=== PATIENT | female | born 1950 | race Caucasian/White ===

== ENCOUNTER 2018-04-12 08:51 | Outpatient (CLI) | payer MEDICARE, BC ==
--- NOTE | 2018-04-12 11:57 | CT ---
CT ABDOMEN AND PELVIS WITH AND WITHOUT IV CONTRAST: Date: 04/12/18 HISTORY: Microhematuria. FINDINGS: Each renal collecting system, ureter, and the urinary bladder are decompressed without stone apparent . No filling defects are visible within the urinary system on the delayed images. Calcified granulomata within the liver are consistent with healed granulomatous disease. Tiny low den sity lesion within the anterior segment right liver lobe is too small to characterize and likely repr esents a small hepatic cyst. Multiple cysts arise from the cortex of each kidney, including an exophy tic hyperdense cyst at the superior pole left kidney measuring up to 1.4 cm. Hyperdense cyst with a f luid-fluid layer also projects laterally from the cortex of the right kidney. There are degenerative changes of the lumbar spine. Calcification throughout the arterial structures. Left gonadal vein is somewhat prominent. Diverticula arise from the colon without adjacent inflammat ion. IMPRESSION: 1. No urinary tract abnormalities are demonstrated to explain microhematuria. There are bilateral re nal cysts. 2. Atherosclerosis. 3. Diverticulosis. No evidence of diverticulitis. POS: TAMMY
[2018-04-12] MEDS ORDERED: Iopamidol 370 76% 100 ML VIAL ONE (13:29)
== END 2018-04-12 08:52 | disposition home or self-care (01) ==
LOC: BICCT 08:51
PROVIDERS: ATTEND Urology
DX: R31.9 Hematuria, unspecified (principal); N28.1 Cyst of kidney, acquired; I70.90 Unspecified atherosclerosis; K57.30 Diverticulosis of large intestine without perforation or abscess without bleeding
CPT/HCPCS: 74178; 82565

== ENCOUNTER 2019-04-12 10:39 | Outpatient (CLI) | payer MEDICARE, BC ==
--- NOTE | 2019-04-12 11:39 | MMO ---
Bilateral MAMMO Bilat Screen [facility]. CLINICAL HISTORY: Patient is 69 years old and is seen for screening. The patient has no family history of breast cancer. The patient has no personal history of cancer. VIEWS: The views performed were: bilateral craniocaudal with tomosynthesis and bilateral mediolateral oblique with tomosynthesis. This study has been interpreted with the assistance of computer-aided detection. MAMMOGRAM FINDINGS: The breasts are heterogeneously dense, which could obscure a lesion on mammography. There are benign appearing calcifications seen in both breasts. There are also vascular calcifications. There are no suspicious masses, suspicious calcifications, or areas of architectural distortion. IMPRESSION: THERE IS NO MAMMOGRAPHIC EVIDENCE OF MALIGNANCY. A ROUTINE FOLLOW-UP MAMMOGRAM IN 1 YEAR IS RECOMMENDED. THE RESULTS OF THIS EXAM WERE SENT TO THE PATIENT. ACR BI-RADS Category 2 - Benign finding MAMMOGRAPHY NOTE: 1. A negative mammogram report should not delay a biopsy if a dominant of clinically suspicious mass is present. 2. Approximately 10% to 15% of breast cancers are not detected by mammography. 3. Adenosis and dense breasts may obscure an underlying neoplasm. Reported by: MOLLY VERDE MD Electonically Signed: [id number]
--- NOTE | 2019-04-12 11:42 | BD ---
DEXA DENSITOMETRY: INDICATIONS: Postmenopausal screening. FINDINGS: LUMBAR SPINE BMD (g/cm2) T-SCORE L1 0.638 -3.2 L2 0.710 -2.9 L3 0.654 -3.9 L4 0.717 -3.1 TOTAL 0.681 -3.3 FEMORAL NECK 0.564 -2.6 TOTAL 0.717 -1.8 Femoral neck density from 12/08/2014 recorded at 0.586. IMPRESSION: The bone mineral density of the lumbar spine and femoral neck both indicate osteoporosis. POS: TAMMY
== END 2019-04-12 10:40 | disposition home or self-care (01) ==
LOC: BICMAMMO 10:39
PROVIDERS: ATTEND Physician Assistant
DX: Z12.31 Encounter for screening mammogram for malignant neoplasm of breast (principal); M81.0 Age-related osteoporosis without current pathological fracture; M85.89 Other specified disorders of bone density and structure, multiple sites
CPT/HCPCS: 77063; 77067; 77080

== ENCOUNTER 2023-05-11 12:56 | Outpatient (CLI) | payer MEDICARE, BC | END 2023-05-11 12:57 | disposition home or self-care (01) | LOC: BICCT 12:56 | PROVIDERS: ATTEND Internal Medicine | DX: Z12.2 Encounter for screening for malignant neoplasm of respiratory organs (principal); J44.9 Chronic obstructive pulmonary disease, unspecified; J43.9 Emphysema, unspecified; Z87.891 Personal history of nicotine dependence | CPT/HCPCS: 71271 ==

== ENCOUNTER 2024-03-16 12:56 | Outpatient (CLI) | payer MEDICARE, BC | END 2024-03-16 12:57 | disposition home or self-care (01) | LOC: BICMAMMO 12:56 | PROVIDERS: ATTEND Nurse Practitioner Family | DX: Z12.31 Encounter for screening mammogram for malignant neoplasm of breast (principal); Z13.820 Encounter for screening for osteoporosis; Z78.0 Asymptomatic menopausal state; M81.0 Age-related osteoporosis without current pathological fracture; Z80.3 Family history of malignant neoplasm of breast | CPT/HCPCS: 77067; 77080 ==

== ENCOUNTER 2024-04-08 10:58 | Outpatient (CLI) | payer MEDICARE, BC | END 2024-04-08 10:59 | disposition home or self-care (01) | LOC: BICRAD 10:58 | PROVIDERS: ATTEND Internal Medicine Rheumatology | DX: M17.11 Unilateral primary osteoarthritis, right knee (principal) ==

== ENCOUNTER 2024-05-28 22:35 | Inpatient (IN) | payer MEDICARE, BC ==
[2024-05-29 01:01] VITALS: BMI 25.5
[2024-05-29] MEDS ORDERED: Ondansetron ODT 4 MG TAB PO PRN (02:11)
[2024-05-29] MEDS ORDERED: Acetaminophen 650 MG Suppository PR PRN (02:11)
[2024-05-29] MEDS ORDERED: Ipratropium/Albuterol 3 ML NEB NEB PRN (02:13)
[2024-05-29] MEDS ORDERED: Electrolyte Replacement Protocol 1 EACH FS PRN (02:14)
[2024-05-29 04:19] LABS: #Basophils Less than 0.03 10x3/uL (0.0-0.2); #Eosinophils Less than 0.03 10x3/uL (0.0-0.7); %Basophils 0.1 % (0.0-1.0); %Monocytes 0.9 % (0.0-10.0); %Neutrophils 90.9 % (42.0-75.0); Hematocrit 38.2 % (36.0-47.0); Mean Corpuscular HGB CONC 31.4 g/dL (32.0-36.0); Mean Corpuscular Hemoglobin 27.6 pg (27.0-31.0); Mean Corpuscular Volume 87.8 fL (78.0-98.0); Mean Platelet Volume 8.6 fL (7.4-10.4); Platelet Count 200 10x3/uL (130-400); RBC Distribution Width 13.8 % (11.5-14.5); Red Blood Cell (RBC) Count 4.35 mill/uL (4.20-5.40)
[2024-05-29 04:35] LABS: Anion Gap 17 mmol/L (10-20); BUN (Urea Nitrogen) 9 mg/dL (9.8-20.1); Calc. Creatinine Clearance 80 mL/min (70-130); Calcium 8.7 mg/dL (7.8-10.44); Carbon Dioxide 24 mmol/L (23-31); Chloride 103 mmol/L (98-107); Estimated GFR 92; Glucose 147 mg/dL (83-110); Potassium 3.5 mmol/L (3.5-5.1); Sodium 140 mmol/L (136-145)
[2024-05-29] MEDS: Acetaminophen 325 MG TAB PO SCH (05:36)
[2024-05-29] MEDS: Ipratropium/Albuterol 3 ML NEB NEB SCH (06:51)
[2024-05-29] MEDS: Mometasone 100 MCG HFA INHALER (RT USE) INH SCH (06:51)
[2024-05-29] MEDS: Potassium Chloride 20 MEQ TAB PO SCH (09:03)
[2024-05-29] MEDS: Famotidine 20 MG TAB PO SCH (09:04)
[2024-05-29] MEDS: HYDROcodone/Acetaminophen 5/325 mg Tablet PO PRN (09:04)
[2024-05-29] MEDS: Doxycycline 100 MG CAP PO SCH (09:04)
[2024-05-29] MEDS: methylPREDNISolone Sod Succ 40 MG VIAL IVP SCH (09:05)
[2024-05-29] MEDS: cefTRIAXone\\ROCEPHIN 1 GM in Sodium Chloride 0.9% 100 ML IVPB SCH (09:05)
[2024-05-29] MEDS: Famotidine/PF 20 mg/2ml Vial SLOW IVP SCH (09:05)
[2024-05-29 12:38] LABS: Influenza A by NAA Not Detected (NotDetected); Influenza B by NAA Not Detected (NotDetected); RSV by NAA DETECTED (NotDetected); SARS-CoV-2 NAA Rapid Test Not Detected (NotDetected)
[2024-05-29 15:20] LABS: Potassium 3.8 mmol/L (3.5-5.1)
[2024-05-29] MEDS: Benzonatate 100 MG CAP PO SCH (22:53)
[2024-05-30 04:16] LABS: Actual Bicarbonate (HCO3v) 26.3 mEq/L (22-28); Base Excess 1.3 mEq/L (-2.0 to +3.0); Calcium, Ionized (venous) 1.14 mmol/L (1.16-1.32); Chloride (VBG) 101 mmol/L (98-106); Hematocrit-VBG 36 % (36.0-47.0); Hemoglobin (Hb) 12.2 g/dL (11.7-16.1); Potassium (VBG) 3.94 mmol/L (3.70-5.30); Sodium 138 mmol/L (133-146); pH (venous) 7.402 (7.32-7.43)
[2024-05-30] MEDS: Budesonide 0.5 MG/2 ML NEB INH SCH (08:24)
[2024-05-30] MEDS: Benzonatate 100 MG CAP PO SCH (08:32)
[2024-05-31] MEDS ORDERED: Senokot 8.6 MG TAB PO PRN (15:23)
[2024-05-31] MEDS: methylPREDNISolone Sod Succ 40 MG VIAL IVP SCH (17:28)
[2024-05-31] MEDS: Senokot 8.6 MG TAB PO SCH (17:28)
[2024-06-01] MEDS ORDERED: fentaNYL 25 mcg Patch TD SCH (13:00)
[2024-06-01] MEDS ORDERED: Electrolyte Replacement Protocol FS PRN (14:15)
[2024-06-01] MEDS: Sodium Chloride 0.65% Nasal 44 ML BOT EA NARE PRN (14:20)
[2024-06-01] MEDS: Guaifenesin DM 100-10/5 ML UDCUP PO PRN (17:35)
[2024-06-01] MEDS: guaiFENesin ER 600 MG TAB PO SCH (20:20)
[2024-06-02] MEDS: fentaNYL 25 mcg Patch TD SCH (08:40)
[2024-06-02 09:19] LABS: #Basophils Less than 0.03 10x3/uL (0.0-0.2); #Eosinophils Less than 0.03 10x3/uL (0.0-0.7); %Lymphocytes 12.7 % (21.0-51.0); %Monocytes 2.9 % (0.0-10.0); %Neutrophils 82.5 % (42.0-75.0); Hematocrit 40.7 % (36.0-47.0); Hemoglobin 12.9 g/dL (12.0-16.0); Mean Corpuscular HGB CONC 31.7 g/dL (32.0-36.0); Mean Corpuscular Hemoglobin 27.2 pg (27.0-31.0); Mean Corpuscular Volume 85.9 fL (78.0-98.0); Mean Platelet Volume 8.7 fL (7.4-10.4); Platelet Count 309 10x3/uL (130-400); RBC Distribution Width 13.7 % (11.5-14.5); Red Blood Cell (RBC) Count 4.74 mill/uL (4.20-5.40)
[2024-06-02 09:37] LABS: Anion Gap 16 mmol/L (10-20); BUN (Urea Nitrogen) 20 mg/dL (9.8-20.1); Calc. Creatinine Clearance 74 mL/min (70-130); Calcium 8.8 mg/dL (7.8-10.44); Carbon Dioxide 27 mmol/L (23-31); Chloride 98 mmol/L (98-107); Estimated GFR 90; Glucose 227 mg/dL (83-110); Magnesium 2.1 mg/dL (1.6-2.6); Potassium 3.8 mmol/L (3.5-5.1); Sodium 137 mmol/L (136-145)
[2024-06-02] MEDS ORDERED: Acetaminophen 325 MG TAB PO PRN (11:44)
[2024-06-02] MEDS: methylPREDNISolone Sod Succ 40 MG VIAL IVP SCH (20:23)
[2024-06-03] MEDS: Ondansetron PF 4 MG/2 ML Vial IVP PRN (07:05)
[2024-06-03 08:00] VITALS: TEMP 98.2
[2024-06-03] MEDS: predniSONE 20 MG TAB PO SCH (12:06)
[2024-06-03 15:41] VITALS: BP 144/96
== END 2024-06-03 16:22 | disposition home or self-care (01) | DRG 871 ==
LOC: 2NO 22:35 → T4-A 05-30 17:40
PROVIDERS: ADMIT Student in an Organized Health Care Education/Training Program; ATTEND Internal Medicine
DX: A41.9 Sepsis, unspecified organism (principal); I21.A1 Myocardial infarction type 2; J96.21 Acute and chronic respiratory failure with hypoxia; J44.1 Chronic obstructive pulmonary disease with (acute) exacerbation; J44.0 Chronic obstructive pulmonary disease with (acute) lower respiratory infection; R65.20 Severe sepsis without septic shock; J20.5 Acute bronchitis due to respiratory syncytial virus; E87.6 Hypokalemia; E78.5 Hyperlipidemia, unspecified; G89.4 Chronic pain syndrome; Z79.891 Long term (current) use of opiate analgesic; Z87.891 Personal history of nicotine dependence
CPT/HCPCS: 0241U; 36415; 80048; 82805; 83735; 85025; 94640; 94664; J0696; J2405; J2919; J7512; J7620; J7626